=== PATIENT | male | born 1960 | race Caucasian/White ===

== ENCOUNTER 2018-03-19 09:06 | Day surgery (SDC) | payer BC ==
[2018-03-19] MEDS ORDERED: DIPRIVAN 200 MG/20 ML IV ONE (09:07)
[2018-03-19] MEDS ORDERED: Lactated Ringers 1,000 ML IV SCH (09:30)
[2018-03-19] MEDS ORDERED: Lactated Ringers 1,000 ML IV ONE ×2 (09:39→12:12)
[2018-03-19 13:32] VITALS: PULSE 63; O2SAT 100
[2018-03-19 13:33] VITALS: BP 143/89
--- NOTE | 2018-03-20 09:02 | OP ---
PROCEDURE DATE/TIME: 03/19/2018 1130 PREOPERATIVE DIAGNOSIS: Screening. POSTOPERATIVE DIAGNOSIS: Polyps. PROCEDURE: Colonoscopy with hot snare ascending polyp and hot forceps ascending and rectosigmoid polyps. PROCEDURE PERFORMED BY: Aline Anaya M.D. COMPLICATIONS: None. ESTIMATED BLOOD LOSS: Minimal. ANESTHESIA: MAC. SPECIMEN: Ascending polyps x2 and rectosigmoid polyp. HISTORY: This is a 57 year-old gentleman who presents for colonoscopy for screening. Risks, benefits, alternatives discussed with the patient. He was seen in the preoperative area. Any remaining questions were answered. DESCRIPTION OF PROCEDURE: He was then brought back to the endoscopy suite, laid in the left lateral decubitus position. A complete time out was performed. First a rectal exam was done and this was normal. The scope was then inserted and gently advanced to the level of the cecum. In the cecum the ileocecal valve and appendiceal orifice were identified and these were normal. The scope was then carefully withdrawn. We took a circumferential view. Prep was adequate. There were three polyps, two in the ascending colon and one in the rectosigmoid region. One of the ascending polyps was larger than the rest of the polyps but overall they were all quite small. Every one of them looked benign. The slightly larger ascending colon polyp was taken in entirety with a hot snare and it was retrieved in the trap and sent to pathology. The other ascending polyp and rectosigmoid polyp were taken in entirety with hot forceps. All sites of polypectomies were hemostatic. The scope was then further withdrawn. Outside of the polyps the remainder of the colon looked normal. No other findings in the rectum. The scope was then completely removed. The patient tolerated the procedure very well. No immediate complications. PLAN: Tentative plan for colonoscopy in approximately three years. Final determination will be made based on pathology. The patient will follow up with me as an outpatient.
== END 2018-03-19 13:05 | disposition home or self-care (01) ==
LOC: SDC 09:06
PROVIDERS: ATTEND Surgery
DX: Z12.11 Encounter for screening for malignant neoplasm of colon (principal); D12.2 Benign neoplasm of ascending colon; D12.7 Benign neoplasm of rectosigmoid junction; I10 Essential (primary) hypertension
CPT/HCPCS: J2704